=== PATIENT | male | born 1970 | race Caucasian/White ===

== ENCOUNTER 2016-10-25 22:07 | Inpatient (IN) | payer OTHER ==
[2016-10-25] MEDS ORDERED: SODIUM CHLORIDE 0.9% 1,000 ML IV ONE (22:51)
[2016-10-25] MEDS ORDERED: LORazepam 2 MG/ML SYRINGE IV STA ×2 (23:11→23:12)
[2016-10-25 23:15] LABS: Basophils # (A) 0.1 k/uL (0-0.2); Basophils % (A) 1 %; CH 31.5; CHCM 35.7; Eosinophils % (A) 0 %; HCT 41.3 % (39.0-53.0); HDW 2.66; HGB 14.2 gm/dL (13.0-17.5); Luc # (Auto) 0.44; Luc % (Auto) 4; Lymphocytes % (A) 20 %; MCH 30.4 pg (25.0-35.0); MCHC 34.3 g/dL (31.0-37.0); MCV 88.7 fL (80.0-100.0); Mean Platelet Volume 7.9; Monocytes # (A) 0.5 k/uL (0-1.0); Monocytes % (A) 5 %; Neutrophils % (A) 70 %; RBC 4.66 m/uL (4.30-5.90); RDW 14.2 % (11.5-15.5); WBC (Perox) 10.11
[2016-10-25 23:23] LABS: Glucose,Whole Blood 126 mg/dL (75-99)
[2016-10-25 23:24] LABS: ALT 93 U/L (21-72); AST 117 U/L (17-59); Alkaline Phosphatase 91 U/L (38-126); Anion Gap 7 mmol/L; Blood Urea Nitrogen 17 mg/dL (9-20); Calcium 8.8 mg/dL (8.4-10.2); Carbon Dioxide 23 mmol/L (22-30); Chloride 107 mmol/L (98-107); Glucose 104 mg/dL (74-99); Non-African American GFR(MDRD) >60 (>60 ml/min/1.73 sqM); Potassium 4.1 mmol/L (3.5-5.1); Sodium 137 mmol/L (137-145); Total Bilirubin 0.5 mg/dL (0.2-1.3); Total Protein 6.7 g/dL (6.3-8.2)
--- NOTE | 2016-10-25 23:27 | ED ---
Altered Mental Status HPI - General Chief Complaint: Recheck/Abnormal Lab/Rx Stated Complaint: withdrawal Time Seen by Provider: 10/25/16 22:26 Source: EMS Mode of arrival: EMS Limitations: altered mental status (Appears delirious) - History of Present Illness Initial Comments: This patient is a 46-year-old man sent over from the [facility] for altered mental status. It is reported to us that the patient had been using over 2 g of heroin per day prior to checking into the rehabilitation center. While at the rehabilitation Center he was reportedly becoming more confused and agitated. Here the patient is not able to give any history due to what appears to be acute delirium. He is able to deny having any recent injury. MD Complaint: altered mental status -: unknown Severity: moderate Consistency of Symptoms: getting worse Context: drug abuse Associated Symptoms: denies other symptoms - Related Data Home Medications Medication Instructions Recorded Confirmed Unable To Assess [Unable to Assess] 10/25/16 10/25/16 Allergies Allergy/AdvReac Type Severity Reaction Status Date / Time Iodinated Contrast- Oral and AdvReac Unknown Verified 10/25/16 22:48 IV Dye Review of Systems ROS Statement: Those systems with pertinent positive or pertinent negative responses have been documented in the HPI. ROS Other: All systems not noted in ROS Statement are negative. Limitations: ROS unobtainable due to patients medical condition (Appears delirious) Neurological: Denies: headache Past Medical History Past Medical History: Heart Failure Additional Past Medical History / Comment(s): heroin abuse x 20 years History of Any Multi-Drug Resistant Organisms: Unobtainable Past Surgical History: Unable to Obtain Past Psychological History: Unable to Obtain Smoking Status: Unknown if ever smoked Past Alcohol Use History: Unable to Obtain Past Drug Use History: Heroin, IV Drug Use General Exam Limitations: altered mental status General appearance: alert, in no apparent distress, other (Appears delirious) Head exam: Present: atraumatic, normocephalic Eye exam: Present: normal appearance, PERRL, EOMI. Absent: scleral icterus, conjunctival injection ENT exam: Present: mucous membranes dry Neck exam: Present: normal inspection, full ROM. Absent: tenderness Respiratory exam: Present: normal lung sounds bilaterally. Absent: respiratory distress, wheezes, rales, rhonchi, stridor Cardiovascular Exam: Present: regular rate, normal rhythm, normal heart sounds. Absent: systolic murmur, diastolic murmur, rubs, gallop GI/Abdominal exam: Present: soft, hyperactive bowel sounds. Absent: tenderness , guarding, rebound, mass Extremities exam: Present: normal inspection, normal capillary refill. Absent: pedal edema, calf tenderness Back exam: Present: normal inspection. Absent: CVA tenderness (R), CVA tenderness (L), vertebral tenderness Neurological exam: Present: alert, other (Patient's GCS is 14. He is not able to comply with the neurologic exam other than to carry out simple one step commands very briefly. He does appear to be moving all 4 extremities without deficit. There is no evident sensory deficit. the patient does appear to respond to internal stimuli at times.) Psychiatric exam: Present: agitated Skin exam: Present: warm, dry, intact, normal color. Absent: rash Course Vital Signs 10/25/16 10/26/16 22:14 01:18 Temperature 97.2 F L Pulse Rate 77 68 Respiratory 18 16 Rate Blood Pressure 138/64 127/78 O2 Sat by Pulse 99 99 Oximetry Medical Decision Making - Medical Decision Making Patient is a 46-year-old man from the [facility] where he reportedly had a history of heavy use of opioids. He is acutely delirious and it does at this time. Be due to withdrawal. The initial workup here is negative, but the patient will be admitted for further evaluation and treatment. Case discussed with Dr. Nair will see the patient. - Lab Data Result diagrams: 10/25/16 23:00 10/25/16 23:00 Lab Results 10/25/16 10/25/16 10/25/16 Range/Units 23:00 23:00 23:00 WBC 10.0 (3.8-10.6) k/uL RBC 4.66 (4.30-5.90) m/uL Hgb 14.2 (13.0-17.5) gm/dL Hct 41.3 (39.0-53.0) % MCV 88.7 (80.0-100.0) fL MCH 30.4 (25.0-35.0) pg MCHC 34.3 (31.0-37.0) g/dL RDW 14.2 (11.5-15.5) % Plt Count 135 L (150-450) k/uL Neutrophils % 70 % Lymphocytes % 20 % Monocytes % 5 % Eosinophils % 0 % Basophils % 1 % Neutrophils # 7.0 (1.3-7.7) k/uL Lymphocytes # 2.0 (1.0-4.8) k/uL Monocytes # 0.5 (0-1.0) k/uL Eosinophils # 0.0 (0-0.7) k/uL Basophils # 0.1 (0-0.2) k/uL PT (9.0-12.0) sec INR (<1.2) APTT (22.0-30.0) sec Sodium 137 (137-145) mmol/L Potassium 4.1 (3.5-5.1) mmol/L Chloride 107 (98-107) mmol/L Carbon Dioxide 23 (22-30) mmol/L Anion Gap 7 mmol/L BUN 17 (9-20) mg/dL Creatinine 0.60 L (0.66-1.25) mg/dL Est GFR (MDRD) Af Amer >60 (>60 ml/min/1.73 sqM) Est GFR (MDRD) Non-Af >60 (>60 ml/min/1.73 sqM) Glucose 104 H (74-99) mg/dL POC Glucose (mg/dL) (75-99) mg/dL POC Glu [employer] [place] ID Plasma Lactic Acid Gregorio (0.7-2.0) mmol/L Calcium 8.8 (8.4-10.2) mg/dL Total Bilirubin 0.5 (0.2-1.3) mg/dL AST 117 H (17-59) U/L ALT 93 H (21-72) U/L Alkaline Phosphatase 91 (38-126) U/L Ammonia (<30) umol/L Total Creatine Kinase 87 (55-170) U/L CK-MB (CK-2) 1.0 (0.0-2.4) ng/mL CK-MB (CK-2) Rel Index 1.1 Troponin I <0.012 (0.000-0.034) ng/mL Total Protein 6.7 (6.3-8.2) g/dL Albumin 3.5 (3.5-5.0) g/dL 10/25/16 10/25/16 10/25/16 Range/Units 23:00 23:00 23:21 WBC (3.8-10.6) k/uL RBC (4.30-5.90) m/uL Hgb (13.0-17.5) gm/dL Hct (39.0-53.0) % MCV (80.0-100.0) fL MCH (25.0-35.0) pg MCHC (31.0-37.0) g/dL RDW (11.5-15.5) % Plt Count (150-450) k/uL Neutrophils % % Lymphocytes % % Monocytes % % Eosinophils % % Basophils % % Neutrophils # (1.3-7.7) k/uL Lymphocytes # (1.0-4.8) k/uL Monocytes # (0-1.0) k/uL Eosinophils # (0-0.7) k/uL Basophils # (0-0.2) k/uL PT 12.0 (9.0-12.0) sec INR 1.2 H (<1.2) APTT 27.1 (22.0-30.0) sec Sodium (137-145) mmol/L Potassium (3.5-5.1) mmol/L Chloride (98-107) mmol/L Carbon Dioxide (22-30) mmol/L Anion Gap mmol/L BUN (9-20) mg/dL Creatinine (0.66-1.25) mg/dL Est GFR (MDRD) Af Amer (>60 ml/min/1.73 sqM) Est GFR (MDRD) Non-Af (>60 ml/min/1.73 sqM) Glucose (74-99) mg/dL POC Glucose (mg/dL) 126 H (75-99) mg/dL POC Glu [employer] [place] Ainsley Leahy Plasma Lactic Acid Gregorio 0.7 (0.7-2.0) mmol/L Calcium (8.4-10.2) mg/dL Total Bilirubin (0.2-1.3) mg/dL AST (17-59) U/L ALT (21-72) U/L Alkaline Phosphatase (38-126) U/L Ammonia 19 (<30) umol/L Total Creatine Kinase (55-170) U/L CK-MB (CK-2) (0.0-2.4) ng/mL CK-MB (CK-2) Rel Index Troponin I (0.000-0.034) ng/mL Total Protein (6.3-8.2) g/dL Albumin (3.5-5.0) g/dL - EKG Data -: EKG Interpreted by Me EKG shows normal: sinus rhythm, axis (Normal), intervals (Normal), QRS complexes (Normal), ST-T waves (Normal) Rate: normal (67 bpm) Disposition Clinical Impression: Altered mental status, Acute delirium, Opioid withdrawal delirium Disposition: ADMITTED IP TO THIS HOSP Condition: Fair Referrals: None,Stated [Primary Care Provider] - 1-2 days
[2016-10-25 23:28] LABS: INR 1.2 (<1.2); Partial Thromboplastin Time 27.1 sec (22.0-30.0)
[2016-10-25 23:39] LABS: Creatine Kinase 87 U/L (55-170)
[2016-10-25 23:52] LABS: Troponin I <0.012 ng/mL (0.000-0.034)
--- NOTE | 2016-10-26 00:17 | CT ---
EXAM: CT Head Without Intravenous Contrast CLINICAL HISTORY: Reason: altered mental status TECHNIQUE: Axial computed tomography images of the head/brain without intravenous contrast. CTDI is 120.60 mGy and DLP is 1855.40 mGy-cm. This CT exam was performed using one or more of the following dose reduction techniques: automated exposure control, adjustment of the mA and/or kV according to patient size, and/or use of iterative reconstruction technique. COMPARISON: No relevant prior studies available. FINDINGS: Artifacts: Motion related artifact present on both of the submitted series. Brain: Allowing for this, no acute hemorrhage. No midline shift, mass effect, nor identifiable acute or recent territorial infarct. Ventricles: Unremarkable. No hydrocephalus. Bones/joints: No acute displaced acute fracture. Soft tissues: Unremarkable. Sinuses: Lobulated round filling defect in the right maxillary sinus suggesting a mucous retention cyst or polyp. Mastoid air cells: Unremarkable as visualized. No mastoid effusion. IMPRESSION: Allowing for motion related artifact, no definite acute intracranial abnormality is seen at this time. Follow-up could be considered if concern or symptoms persist.
--- NOTE | 2016-10-26 00:18 | XR ---
EXAM: XR Chest, 1 View CLINICAL HISTORY: Reason: altered mental status TECHNIQUE: Frontal supine views of the chest. COMPARISON: No relevant prior studies available. FINDINGS: Lungs: No consolidation. Pleural space: Unremarkable. No pleural effusion or pneumothorax. Heart: Unremarkable. No cardiomegaly. Mediastinum: Mild aortic arch calcification. Bones/joints: No acute displaced fracture. IMPRESSION: No acute intrathoracic abnormality is seen.
[2016-10-26] MEDS ORDERED: LORazepam 2 MG/ML SYRINGE IV STA (00:57)
[2016-10-26] MEDS ORDERED: NALOXONE 0.4 MG/ML 1 ML VIAL IV PRN ×2 (01:26→02:13)
[2016-10-26] MEDS ORDERED: DOCUSATE 100 MG CAP PO PRN (02:13)
[2016-10-26] MEDS ORDERED: HYDROcodone/APAP 5-325MG 1 EACH TAB PO PRN (02:13)
[2016-10-26] MEDS ORDERED: LORazepam 2 MG/ML SYRINGE IV PRN (02:49)
[2016-10-26 02:53] LABS: Appearance,Urine Clear (Clear); Bilirubin,Urine Negative (Negative); Glucose,Urine (UA) Negative (Negative); Ketones,Urine 1+ (Negative); Leukocyte Esterase,Urine Negative (Negative); Nitrite,Urine Negative (Negative); Protein,Urine Trace (Negative); Specific Gravity,Urine 1.019 (1.001-1.035); UA Billing (MACRO vs. MICRO) CHEM
--- NOTE | 2016-10-26 03:32 | P.HPIM ---
History of Present Illness H&P Date: 10/26/16 Chief Complaint: altered mental status 46 year old male , unable to provide any meaningful history at this point. History was obtained by reviewing medical records and paper chart accompanied by the patient, to summarize. Patient seems to be a heroin addict, he uses up to 4 gm of heroin daily , last time he used heroin was 9/11 AM. He was at [facility] and was sent to [facility] due to hypotension, he was stablized there and then sent back to [facility] where he started to have acute delerium and progressive altered mental status for which he was sent to [facility] this time. In the ED the patient was found delerius and unable to provide any history or info, CT of the head did not show any acute process. Labs overall were unremarkable, he was admitted for further care and evaluation by psych and neurology. on the floor patient was found to have urinary retention of +300 cc , and intermittent straight cath was done showed yellow urine. patient behavior is unpredictable and continues to attempt to leave the bed, a bed side sitter is ordered for patient safety. Review of Systems unable to obtain due to patient altered mental status and delirium ROS unobtainable: due to mental status Past Medical History Past Medical History: Unable to Obtain (due to patient delirium), Heart Failure Additional Past Medical History / Comment(s): heroin abuse x 20 years History of Any Multi-Drug Resistant Organisms: Unobtainable Past Surgical History: Unable to Obtain Past Psychological History: Unable to Obtain Smoking Status: Unknown if ever smoked Past Alcohol Use History: Unable to Obtain Past Drug Use History: Heroin, IV Drug Use Additional History: unable to obtain any meaningful PMHx or family history due to mental status changes and delirium Medications and Allergies Home Medications and Allergies Comment(s): unable to review due to patient delirium Home Medications Medication Instructions Recorded Confirmed Type Unable To Assess [Unable to Assess] 10/25/16 10/25/16 History Allergies Allergy/AdvReac Type Severity Reaction Status Date / Time Iodinated Contrast- Oral and AdvReac Unknown Verified 10/25/16 22:48 IV Dye Physical Exam Vitals: Vital Signs Temp Pulse Resp BP Pulse Ox 10/26/16 02:04 68 18 145/70 97 10/26/16 01:18 68 16 127/78 99 10/25/16 22:14 97.2 F L 77 18 138/64 99 Intake and Output 10/25/16 10/25/16 10/26/16 14:59 22:59 06:59 Other: Weight 70.307 kg Patient Weight 10/26/16 06:59 Weight 70.307 kg Constitutional: No acute distress, confused Eyes: Anicteric sclerae, moist conjunctiva, no lid-lag Pupils equal round reactive to light ENMT: NC/AT Oropharynx clear, no erythema, exudates Neck: Supple, FROM, no masses, or JVD No carotid bruits No thyromegaly Lungs: Clear to auscultation Clear to percussion Normal respiratory effort, no accessory muscle use Cardiovascular: Heart regular in rate and rhythm, No murmurs, gallops, or rubs No peripheral edema Abdominal: Soft Nontender, no guarding, rebound or rigidity Abdomen moving with respiration Normoactive bowel sounds No hepatomegaly, No splenomegaly No palpable mass No abdominal wall hernia noted Skin: Normal temperature, tone, texture, turgor No induration No subcutaneous nodules No rash, lesions No ulcers Extremities: No digital cyanosis No clubbing Pedal pulses intact and symmetrical Radial pulses intact and symmetrical No calf tenderness Psychiatric: confused, short attention span, drifts back to sleep if not stimulated disoriented Neuro Muscles Strength 5/5 in all 4 extremities unable to perform neurological assessment due to patient mental status Lymphatics: no palpable cervical or supraclavicular , or inguinal lymph nodes Results Results: reviewed CBC & Chem 7: 10/25/16 23:00 10/25/16 23:00 Labs: Abnormal Lab Results - Last 24 Hours (Table) 10/25/16 10/25/16 10/25/16 Range/Units 23:00 23:00 23:00 Plt Count 135 L (150-450) k/uL INR 1.2 H (<1.2) Creatinine 0.60 L (0.66-1.25) mg/dL Glucose 104 H (74-99) mg/dL POC Glucose (mg/dL) (75-99) mg/dL AST 117 H (17-59) U/L ALT 93 H (21-72) U/L 10/25/16 Range/Units 23:21 Plt Count (150-450) k/uL INR (<1.2) Creatinine (0.66-1.25) mg/dL Glucose (74-99) mg/dL POC Glucose (mg/dL) 126 H (75-99) mg/dL AST (17-59) U/L ALT (21-72) U/L Assessment and Plan (1) Acute delirium Status: Acute (2) Altered mental status Narrative/Plan: Acute metabolic encephalopathy most likely 2/2 drug abuse Status: Acute (3) Opioid withdrawal delirium Status: Acute (4) DVT prophylaxis Narrative/Plan: heparin sc Status: Acute (5) Heroin abuse Status: Chronic Plan: seizure and fall precautions neurology and psychiatry consults placed bed side sitter for safety ativan PRN for agitation and anxiety it seems that there is vague history of CHF, and patient has stopped ACEi and HCTz 1 year ago continue to hold due to earlier report of hypotension DVT PPX heparin sc heroin abuse , social service technician consult for rehab resources code status full code thrombocytopenia , mild , no evidence of bleeding most likely 2/2 drug abuse mild transaminitis. check hepatitis panel Time with Patient: Greater than 30
[2016-10-26 05:28] VITALS: BMI 22.2
[2016-10-26] MEDS: SODIUM CHLORIDE 0.9% 1,000 ML IV SCH ×3 (05:30→20:17)
[2016-10-26] MEDS: HEPARIN SODIUM,PORCINE 5,000 UNIT/ML 1 ML VIAL SQ SCH ×3 (06:56→23:32)
[2016-10-26] MEDS: ALPRAZolam 0.25 MG TAB PO PRN ×2 (08:59→20:13)
[2016-10-26] MEDS: FAMOTIDINE 20 MG TAB PO SCH ×2 (08:59→20:13)
[2016-10-26] MEDS ORDERED: METHADONE 5 MG TAB PO SCH (10:15)
--- NOTE | 2016-10-26 11:11 | P.PN ---
Subjective Principal diagnosis: altered mentation Patient is a 46-year-old male with a past medical history of opiate dependency, nicotine abuse, possible congestive heart failure who initially was sent here from [place] due to altered mentation. He underwent a head CT which showed no acute breast and a chest x-ray which showed no acute process. His labs were remarkable for slightly elevated liver enzyme. He was admitted to the selective care unit. On arrival to the floor he was found to have 300 mL of urinary retention. He was quite agitated and combative and required a sitter. Patient seen and examined at bedside. He is lethargic. He does follow commands. He is alert to being in the hospital and year. He does not answer questions to chest pain, shortness of breath, nausea, vomiting, and anxiety. Objective - Vital Signs Vital signs: Vital Signs Temp 97.6 F 10/26/16 08:00 Pulse 76 10/26/16 08:00 Resp 18 10/26/16 04:00 BP 144/78 10/26/16 08:00 Pulse Ox 94 L 10/26/16 08:00 Intake & Output 10/25/16 10/26/16 10/26/16 18:59 06:59 18:59 Intake Total 20 Output Total 100 Balance -80 Weight 70.307 kg Intake: IV 10 0.9 10 Intake, IV Titration 10 Amount Sodium Chloride 0.9% 1, 10 000 ml @ 100 mls/hr IV . Q10H [facility] Rx#:[id number] Output: Urine 100 - Exam General: non toxic, mild distress, appears at stated age Derm: no rashes, no lesions Head: atraumatic, normocephalic, symmetric Eyes: EOMI, no lid lag, anicteric sclera ENT: no post nasal drip, no thrush Mouth: no lip lesion, mucus membranes moist Cardiovascular: S1S2 reg, no murmur, positive posterior tibial pulse bilateral, Lungs: CTA bilateral, no rhonchi, no rales , no accessory muscle use Abdominal: soft, nontender to palpation, no guarding, no appreciable organomegaly Ext: no gross muscle atrophy, no edema, no contractures Neuro: CN II-XI grossly intact, moving all 4 extremities independently Psych: Alert, oriented, flat affect, fidgety - Labs CBC & Chem 7: 10/25/16 23:00 10/25/16 23:00 Labs: Abnormal Lab Results - Last 24 Hours (Table) 10/25/16 10/25/16 10/25/16 Range/Units 23:00 23:00 23:00 Plt Count 135 L (150-450) k/uL INR 1.2 H (<1.2) Creatinine 0.60 L (0.66-1.25) mg/dL Glucose 104 H (74-99) mg/dL POC Glucose (mg/dL) (75-99) mg/dL AST 117 H (17-59) U/L ALT 93 H (21-72) U/L Urine Protein (Negative) Urine Ketones (Negative) Urine Opiates Screen (NotDetected) U Benzodiazepines Scrn (NotDetected) Urine Cocaine Screen (NotDetected) U Marijuana (THC) Screen (NotDetected) 10/25/16 10/26/16 Range/Units 23:21 02:30 Plt Count (150-450) k/uL INR (<1.2) Creatinine (0.66-1.25) mg/dL Glucose (74-99) mg/dL POC Glucose (mg/dL) 126 H (75-99) mg/dL AST (17-59) U/L ALT (21-72) U/L Urine Protein Trace H (Negative) Urine Ketones 1+ H (Negative) Urine Opiates Screen Detected H (NotDetected) U Benzodiazepines Scrn Detected H (NotDetected) Urine Cocaine Screen Detected H (NotDetected) U Marijuana (THC) Screen Detected H (NotDetected) Assessment and Plan Plan: Acute encephalopathy -She is or precautions, fall precautions -Bedside sitter for safety -When necessary Xanax for agitation -Await neurology evaluation Opiate withdrawal -We are unable to start new methadone at this hospital, we only carry IV bupinorphen and do not stock Suboxone. Therefore we will attempt to treat withdrawal with Catapres twice a day -We'll attempt to not use any other forms of opiate medication to treat withdrawal as these will precipitate a new addiction -Await psychiatry evaluation Transaminitis and thrombocytopenia -Suspected due to liver dysfunction -Hepatitis profile -Could consider liver ultrasound once patient more cooperative Possible history of congestive heart failure -Seems that patient has stopped his RONDA inhibitor and hydrochlorothiazide approximately one year ago Maria Isabel restart due to recent report of hypotension When addiction -dynamic balancer set up worker consult -Likely return to [place] at discharge DVT prophylaxis: Heparin Discussed with: Patient, nursing, pharmacy Anticipated discharge: Return to [place] Anticipated discharge place: 48-72 hours A total of 35 minutes was spent on the care of this complex patient more than 50 % of the time was spent in counseling and care coordination.
[2016-10-26] MEDS: cloNIDine HCL 0.1 MG TAB PO SCH ×2 (11:57→20:13)
[2016-10-26 11:59] LABS: Glucose,Whole Blood 100 mg/dL (75-99)
[2016-10-26 12:25] LABS: Hepatitis B Surface Ag Index 0.09
[2016-10-26 12:30] LABS: Hepatitis B Core IgM Index 0.32
[2016-10-26 12:42] LABS: Hepatitis C Virus IgG Ab Reactive (Negative)
--- NOTE | 2016-10-26 13:09 | P.PN ---
Progress Note - Text I reviewed the chart and went to interview the patient, he is not able to participate fully in a psychiatric evaluation at this time I will return tomorrow to attempt to evaluate the patient.
--- NOTE | 2016-10-26 18:57 | P.CNNES ---
History of Present Illness Consult date: 10/26/16 History of Present Illness: The patient is a 46-year-old man was admitted to the hospital with altered mental status. He has a history of heroin addiction. He was at [facility] and was sent to [facility] for high a pole tension thereafter he was sent back to [facility] where he had progressive mental status changes. He was then transferred to [facility] emergency room. History is unobtainable. Patient is sleepy and upset when awakened. When he is awakened he is able to answer and follow commands however he is not willing to do so. He states he wants to go home. The bedside sitter is at the bedside and states he has been sleeping all day. There is no history of seizure or head concussion. He had a CT of the brain which showed no definite abnormality. Review of Systems ROS unobtainable: due to mental status Past Medical History Past Medical History: Unable to Obtain (due to patient delirium), Heart Failure Additional Past Medical History / Comment(s): heroin abuse x 20 years History of Any Multi-Drug Resistant Organisms: Unobtainable Past Surgical History: Unable to Obtain Past Anesthesia/Blood Transfusion Reactions: Unable to Obtain Past Psychological History: Unable to Obtain Smoking Status: Unknown if ever smoked Past Alcohol Use History: Unable to Obtain Past Drug Use History: Heroin, IV Drug Use Medications and Allergies Home Medications Medication Instructions Recorded Confirmed Type No Known Home Medications [No 10/26/16 10/26/16 History Known Home Medications] Allergies Allergy/AdvReac Type Severity Reaction Status Date / Time Iodinated Contrast- Oral and AdvReac Unknown Verified 10/25/16 22:48 IV Dye Physical Examination - Vital Signs Vital Signs: Vital Signs Temp Pulse Pulse Resp BP BP Pulse Ox 10/26/16 16:00 98.5 F 58 L 117/73 95 10/26/16 12:00 61 129/74 10/26/16 08:00 97.6 F 76 144/78 94 L 10/26/16 04:00 97.7 F 63 18 145/76 98 10/26/16 02:30 97.8 F 79 18 135/70 98 10/26/16 02:04 68 18 145/70 97 10/26/16 01:18 68 16 127/78 99 10/25/16 22:14 97.2 F L 77 18 138/64 99 Intake and Output 10/26/16 10/26/16 10/26/16 06:59 14:59 22:59 Intake Total 20 120 Output Total 100 Balance -80 120 Intake: IV 10 0.9 10 Intake, IV Titration 10 0 Amount Sodium Chloride 0.9% 1, 10 0 000 ml @ 100 mls/hr IV . Q10H [facility] Rx#:[id number] Oral 120 Output: Urine 100 Other: Weight 70.307 kg - Constitutional General appearance: disheveled - EENT EENT: PERRL - Respiratory Respiratory: lungs clear - Cardiovascular Cardiovascular: regular rate - Integumentary Integumentary: normal - Neurologic Neurologic examination mental status the patient was very lethargic. When he was awakened he was angry and wanted to go home and to did not want to be bothered with questions. His speech appeared to be intact. Is no obvious dysarthria. Asymptomatic Cranial nerve examination there was no obvious facial asymmetry. Next Motor examination he moved all 4 extremities and was able to lift both legs off the bed and both arms off the bed. Results - Laboratory Findings CBC and BMP: 10/25/16 23:00 10/25/16 23:00 Abnormal Lab Findings: Abnormal Labs 10/25/16 10/25/16 10/25/16 23:00 23:00 23:00 Plt Count 135 L INR 1.2 H Creatinine 0.60 L Glucose 104 H POC Glucose (mg/dL) AST 117 H ALT 93 H Urine Protein Urine Ketones Urine Opiates Screen U Benzodiazepines Scrn Urine Cocaine Screen U Marijuana (THC) Screen 10/25/16 10/26/16 10/26/16 23:21 02:30 11:57 Plt Count INR Creatinine Glucose POC Glucose (mg/dL) 126 H 100 H AST ALT Urine Protein Trace H Urine Ketones 1+ H Urine Opiates Screen Detected H U Benzodiazepines Scrn Detected H Urine Cocaine Screen Detected H U Marijuana (THC) Screen Detected H Assessment and Plan (1) Altered mental status Status: Acute Code(s): R41.82 - ALTERED MENTAL STATUS, UNSPECIFIED (2) Opioid withdrawal delirium Status: Acute Code(s): F11.23 - OPIOID DEPENDENCE WITH WITHDRAWAL Plan: The patient is a 46-year-old man with history of altered mental status. He has a history of heroin abuse and was at [facility]. History is obtained primarily from the chart record. The patient is on willing to cooperate to examination. He states he wants to be left alone and wants to go home. His computed tomography scan of the brain was unremarkable. He may be having an acute delirium and it is difficult to assess at this time. Neuro exam assessment , no focal abnormality could be detected
[2016-10-26 20:25] LABS: Glucose,Whole Blood 105 mg/dL (75-99)
[2016-10-26 21:08] LABS: Hepatitis B Surface Antibody Reactive (Non-Reactive)
[2016-10-26 21:16] LABS: Glucose,Whole Blood 165 mg/dL (75-99)
[2016-10-27] MEDS: SODIUM CHLORIDE 0.9% 1,000 ML IV SCH ×2 (04:23→13:18)
[2016-10-27] MEDS: ALPRAZolam 0.25 MG TAB PO PRN ×2 (04:24→09:00)
[2016-10-27 07:13] LABS: Basophils # (A) 0.1 k/uL (0-0.2); Basophils % (A) 1 %; CH 30.5; CHCM 34.5; Eosinophils # (A) 0.1 k/uL (0-0.7); Eosinophils % (A) 1 %; HCT 44.2 % (39.0-53.0); HDW 2.64; HGB 15.4 gm/dL (13.0-17.5); Luc # (Auto) 0.37; Luc % (Auto) 4; Lymphocytes # (A) 2.1 k/uL (1.0-4.8); Lymphocytes % (A) 25 %; MCH 30.9 pg (25.0-35.0); MCHC 34.8 g/dL (31.0-37.0); MCV 88.7 fL (80.0-100.0); Mean Platelet Volume 8.2; Monocytes # (A) 0.4 k/uL (0-1.0); Monocytes % (A) 5 %; Neutrophils # (A) 5.6 k/uL (1.3-7.7); Neutrophils % (A) 64 %; RBC 4.98 m/uL (4.30-5.90); RDW 13.4 % (11.5-15.5); WBC 8.7 k/uL (3.8-10.6); WBC (Perox) 8.47
[2016-10-27 07:15] LABS: ALT 121 U/L (21-72); AST 146 U/L (17-59); Alkaline Phosphatase 76 U/L (38-126); Anion Gap 11 mmol/L; Blood Urea Nitrogen 17 mg/dL (9-20); Calcium 9.2 mg/dL (8.4-10.2); Carbon Dioxide 22 mmol/L (22-30); Chloride 107 mmol/L (98-107); Glucose 103 mg/dL (74-99); Non-African American GFR(MDRD) >60 (>60 ml/min/1.73 sqM); Potassium 3.9 mmol/L (3.5-5.1); Sodium 140 mmol/L (137-145); Total Bilirubin 0.8 mg/dL (0.2-1.3); Total Protein 6.9 g/dL (6.3-8.2)
[2016-10-27] MEDS: HEPARIN SODIUM,PORCINE 5,000 UNIT/ML 1 ML VIAL SQ SCH (08:56)
[2016-10-27] MEDS: cloNIDine HCL 0.1 MG TAB PO SCH (08:56)
[2016-10-27] MEDS: FAMOTIDINE 20 MG TAB PO SCH (08:56)
[2016-10-27 09:06] VITALS: RESP 16
--- NOTE | 2016-10-27 09:36 | P.PN ---
Progress Note - Text Hospitalists interval note: Patient seen and examined at bedside. He complains of pain all over, nausea, anxiety, diaphoresis. He denies any vomiting. His asking to go back to [facility]. He has no recollection of his confusion episode. Discussed his finding of positive hepatitis C antibody. He is aware that he has known hepatitis C infection. He also is aware that he has positive hepatitis B core antibody and that he has cleared hepatitis B infection. He does not want to stay to have a liver ultrasound performed. He has not been following up with GI in the past but is willing to do this as an outpatient after completing his treatment for opiate addiction. General: non toxic, no distress, appears at stated age Derm: no rashes, no lesions Head: atraumatic, normocephalic, symmetric Eyes: EOMI, no lid lag, anicteric sclera ENT: no post nasal drip, no thrush Mouth: no lip lesion, mucus membranes moist Cardiovascular: S1S2 reg, no murmur, positive posterior tibial pulse bilateral, Lungs: CTA bilateral, no rhonchi, no rales , no accessory muscle use Abdominal: soft, nontender to palpation, no guarding, no appreciable organomegaly Ext: no gross muscle atrophy, no edema, no contractures Neuro: CN II-XI grossly intact, no focal neuro deficits Psych: Alert and oriented to it being 2017 that he is in a hospital that he was at [facility] and he is withdrawing from heroin., Anxious affect Medically stable for discharge back to [facility]. Ideally will need follow-up with GI as an outpatient. Have contacted case management and waiting to hear back if [facility] will accept him. Formal progress note or discharge summary to follow. Merle Louise DO
[2016-10-27] MEDS ORDERED: NICOTINE POLACRILEX 2 MG GUM BUCCAL PRN (10:59)
[2016-10-27] MEDS ORDERED: NICOTINE 21MG/24HR PATCH TRANSDERM SCH (11:00)
[2016-10-27 11:31] VITALS: BP 124/76; PULSE 68; TEMP 97.8
[2016-10-27 12:12] LABS: Glucose,Whole Blood 105 mg/dL (75-99)
[2016-10-27 12:12] LABS: Glucose,Whole Blood 149 mg/dL (75-99)
[2016-10-27] MEDS ORDERED: ALPRAZolam 0.25 MG TAB PO STA (12:49)
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
[2016-10-28 14:58] LABS: LOG HCV IU/mL 6.11 (<1.08)
== END 2016-10-27 15:51 | disposition home or self-care (01) | DRG 896 ==
LOC: EC 22:07 → 6SEL 10-26 01:27
PROVIDERS: ADMIT Internal Medicine; ATTEND Internal Medicine
DX: F11.23 Opioid dependence with withdrawal (principal); G93.41 Metabolic encephalopathy; D69.6 Thrombocytopenia, unspecified; I50.9 Heart failure, unspecified; B19.10 Unspecified viral hepatitis B without hepatic coma; F41.9 Anxiety disorder, unspecified; B19.20 Unspecified viral hepatitis C without hepatic coma; F17.200 Nicotine dependence, unspecified, uncomplicated; R33.9 Retention of urine, unspecified
CPT/HCPCS: 36415; 70450; 71010; 80053; 80306; 81003; 82140; 82550; 82553; 83605; 83735; 84484; 85025; 85610; 85730; 86704; 86705; 86706; 86803; 87040; 87340; 87522; 93005; 96361; 96374; 96376; 99285